=== PATIENT | female | born 1950 | race African-American/Black ===

== ENCOUNTER 2017-09-21 07:25 | Observation (INO) | payer OTHER ==
[~2017-09-21 07:25] MED LIST: HYDROmorphone 2 MG/ML VIAL IV; LIDOCAINE 1% PF 2 ML VIAL. ID; MORPHINE SULFATE 4 MG/ML DISP.SYRIN. IV; ONDANSETRON PF 4 MG/2 ML VIAL. IV; PROCHLORPERAZINE 10 MG/2 ML VIAL. IV; fentaNYL PF VIAL 100 MCG/2 ML VIAL IV
[2017-09-21] MEDS: IV RINGERS,LACTATED 1000ML 1,000 ML IV ×2 (08:27→14:59)
[2017-09-21 08:31] LABS: ADD MAN DIFF? NO
[2017-09-21 08:36] LABS: BASO # 0.1 x10^3/uL (0.0-0.2); BASO % 1 % (0-3); EOS # 0.1 x10^3/uL (0.0-0.7); EOS % 2 % (0-3); HEMATOCRIT 39.6 % (36.0-47.0); HEMOGLOBIN 13.4 g/dL (12.0-15.5); LYMPH # 1.7 x10^3/uL (1.0-4.8); LYMPH % 23 % (24-48); MEAN CORPUSCULAR HEMOGLOBIN 30 pg (25-35); MEAN CORPUSCULAR HGB CONC 34 g/dL (31-37); MEAN CORPUSCULAR VOLUME 87 fL (79-100); MONO # 0.5 x10^3/uL (0.0-1.1); MONO % 7 % (0-9); NEUT # 4.9 x10^3uL (1.8-7.7); NEUT % 67 % (31-73); PLATELET COUNT 349 x10^3/uL (140-400); RED BLOOD COUNT 4.55 x10^6/uL (3.50-5.40); RED CELL DISTRIBUTION WIDTH 13.8 % (11.5-14.5); WHITE BLOOD COUNT 7.3 x10^3/uL (4.0-11.0)
[2017-09-21] MEDS ORDERED: LIDOCAINE 2% PF Vial for OR 5 ML VIAL. (08:40)
[2017-09-21] MEDS ORDERED: PROPOFOL 20 ML IV (08:40)
[2017-09-21] MEDS ORDERED: fentaNYL PF VIAL 100 MCG/2 ML VIAL (08:41)
[2017-09-21] MEDS ORDERED: FAMOTIDINE 20 MG/2 ML VIAL (08:41)
[2017-09-21] MEDS ORDERED: DEXAMETHASONE SOD PHOS 20 MG/5 ML VIAL. (08:41)
[2017-09-21] MEDS ORDERED: ONDANSETRON PF 4 MG/2 ML VIAL. (08:41)
[2017-09-21 08:48] LABS: ANION GAP 8 (6-14); BLOOD UREA NITROGEN 16 mg/dL (7-20); CALCIUM 9.6 mg/dL (8.5-10.1); CARBON DIOXIDE 30 mmol/L (21-32); CHLORIDE 103 mmol/L (98-107); GFR 66.7; GLUCOSE 117 mg/dL (70-99); POTASSIUM 3.4 mmol/L (3.5-5.1); SODIUM 141 mmol/L (136-145)
[2017-09-21] MEDS: SCOPOLAMINE 1.5MG PATCH. TD (09:15)
[2017-09-21] MEDS ORDERED: SUCCINYLCHOLINE 200 MG/10 ML VIAL. (09:40)
[2017-09-21] MEDS ORDERED: LIDOCAINE 1%/EPI 1:100,000 20 ML VIAL. INJ (10:00)
[2017-09-21] MEDS ORDERED: KETOROLAC 30 MG/ML INJ FOR OR. INJ (10:08)
[2017-09-21] MEDS: LIDOCAINE 2%/EPI 1:100,000 20 ML VIAL. IJ (10:14)
[2017-09-21] MEDS ORDERED: DEXTROSE 50% 25 GM / 50ML DISP.SYRIN. IV (10:45)
[2017-09-21] MEDS ORDERED: KETOROLAC 30 MG/ML INJ. IV (10:45)
[2017-09-21] MEDS ORDERED: diphenhydrAMINE 50 MG/ML VIAL IV (10:45)
[2017-09-21] MEDS ORDERED: ZOLPIDEM 5 MG TABLET. PO (10:45)
[2017-09-21] MEDS ORDERED: oxyCODONE/APAP 5/325 1 TAB TABLET PO (10:45)
[2017-09-21] MEDS ORDERED: diphenhydrAMINE HCL 25 MG CAPSULE PO (10:45)
[2017-09-21] MEDS ORDERED: ONDANSETRON PF 4 MG/2 ML VIAL. IV (10:45)
[2017-09-21] MEDS ORDERED: SIMETHICONE 80 MG TAB.CHEW PO (10:45)
[2017-09-21] MEDS ORDERED: CALCIUM CARBONATE 500 MG TAB.CHEW PO (10:45)
[2017-09-21] MEDS ORDERED: 0.9 % SODIUM CHLORIDE 10 ML DISP.SYRIN. IV (10:45)
[2017-09-21] MEDS ORDERED: PROCHLORPERAZINE 10 MG/2 ML VIAL. IV (10:45)
[2017-09-21] MEDS: LABETALOL 20 MG/4 ML DISP.SYRIN. IVP (11:31)
[2017-09-21] MEDS ORDERED: GABAPENTIN 300 MG CAPSULE. PO (14:00)
[2017-09-22] MEDS: IV RINGERS,LACTATED 1000ML 1,000 ML IV (00:32)
[2017-09-22 04:33] LABS: ADD MAN DIFF? NO
[2017-09-22 04:43] LABS: BASO # 0.1 x10^3/uL (0.0-0.2); BASO % 1 % (0-3); EOS % 0 % (0-3); HEMATOCRIT 34.2 % (36.0-47.0); HEMOGLOBIN 11.5 g/dL (12.0-15.5); LYMPH # 1.6 x10^3/uL (1.0-4.8); LYMPH % 14 % (24-48); MEAN CORPUSCULAR HEMOGLOBIN 29 pg (25-35); MEAN CORPUSCULAR HGB CONC 34 g/dL (31-37); MEAN CORPUSCULAR VOLUME 87 fL (79-100); MONO # 0.7 x10^3/uL (0.0-1.1); MONO % 6 % (0-9); NEUT # 9.2 x10^3uL (1.8-7.7); NEUT % 80 % (31-73); PLATELET COUNT 308 x10^3/uL (140-400); RED BLOOD COUNT 3.93 x10^6/uL (3.50-5.40); WHITE BLOOD COUNT 11.5 x10^3/uL (4.0-11.0)
== END 2017-09-22 10:50 | disposition home or self-care (01) ==
LOC: SURG 07:25 → 3 NORTH 10:39
DX: N93.9 Abnormal uterine and vaginal bleeding, unspecified (principal)
CPT/HCPCS: 36415; 80048; 85025; 93005; A7015; G0378; G0379; J0330; J0690; J1100; J1885; J2405; J2704; J3010; J3490; J7120; S0028

== ENCOUNTER → 2017-10-03 | Outpatient (CLI) | payer OTHER | END | disposition home or self-care (01) | LOC: KCIC DEXA 10:35 | DX: C50.812 Malignant neoplasm of overlapping sites of left female breast (principal); M81.0 Age-related osteoporosis without current pathological fracture; I10 Essential (primary) hypertension; Z78.0 Asymptomatic menopausal state | CPT/HCPCS: 77080 ==

== ENCOUNTER → 2018-03-30 | Day surgery (SDC) | payer OTHER ==
[~2018-03-30] MED LIST changes: +ANAS1TAB47 PO; +ASPI-482 PO; +ATOR10TA PO; +DOCU-109 PO; +ERGO500027 PO; +FISH400C4 PO; +HYDR-971 PO; +HYDR12.58 PO; +HYDR25TA9 PO; -HYDROmorphone 2 MG/ML VIAL IV; +Hydrocodone/Acetaminophen PO; +IBUP-1060 PO; +IV RINGERS,LACTATED 1000ML 1,000 ML IV SCH; -LIDOCAINE 1% PF 2 ML VIAL. ID; +LIDOCAINE 1% PF 2 ML VIAL. ID PRN; +LIDOCAINE 1% PF 2 ML VIAL. ONE; +MIDAZOLAM HCL/PF 2 MG/2 ML VIAL. IV PRN; -MORPHINE SULFATE 4 MG/ML DISP.SYRIN. IV; -ONDANSETRON PF 4 MG/2 ML VIAL. IV; +Oxycodone Hcl/Acetaminophen PO; -PROCHLORPERAZINE 10 MG/2 ML VIAL. IV; +PROPOFOL 40 ML IV ONE; -fentaNYL PF VIAL 100 MCG/2 ML VIAL IV; +fentaNYL PF VIAL 100 MCG/2 ML VIAL IV PRN
[2018-03-30 08:48] VITALS: BP 112/72
--- NOTE | 2018-03-30 22:45 | CONS ---
DATE OF CONSULTATION: 03/30/2018 REFERRING PHYSICIAN: Dr. Suresh Guerrero. REASON FOR CONSULTATION: History of colonic polyps. HISTORY OF PRESENT ILLNESS: A 67-year-old female, with past medical history significant for hyperlipidemia as well as osteoarthrosis, history of colonic polyps as well as breast cancer, status post radiation and lumpectomy, is seen for interval colonoscopy. Last exam was 5 years ago at which time polyps were discovered. No bleeding, change in bowel habits, change in weight or appetite is noted. The patient otherwise is without additional complaints. PAST MEDICAL HISTORY: Colonic polyps, osteoarthrosis, hyperlipidemia and history of breast cancer. ALLERGIES: None. MEDICATIONS: Include Arimidex, aspirin, atorvastatin, vitamin D, fish oil, hydrochlorothiazide and ibuprofen. FAMILY HISTORY: Significant for colon cancer with her sister, breast cancer with her mother, diabetes and hypertension. REVIEW OF SYSTEMS: As per records. PHYSICAL EXAMINATION: GENERAL: Reveals a well-nourished, well-developed female, alert, cooperative, in no acute distress. VITAL SIGNS: Temperature is 97, pulse 98, respirations 20. HEENT: Reveals normocephalic and atraumatic head. Pupils and extraocular muscles are not tested. Sclerae anicteric. NECK: Supple. LUNGS: Clear. CARDIOVASCULAR: Reveals an S1, S2 without S3, S4 or appreciable murmur. ABDOMEN: Soft abdomen, normal bowel sounds without appreciable hepatosplenomegaly. EXTREMITIES: Reveals no cyanosis, clubbing or edema. IMPRESSION: History of colonic polyps. Surveillance colonoscopy is recommended at this time. Risks and benefits were previously discussed including risks of hemorrhage and perforation during operation, and she is willing to proceed. I would like to thank Dr. Guerrero for allowing us to consult and participate in the patient's care. SOCORRO CRONIN MD DR: CARLA/mami JOB#: [id number] / [id number]
== END | disposition home or self-care (01) ==
LOC: ENDOS 07:19
PROVIDERS: ATTEND Internal Medicine Gastroenterology
DX: Z12.11 Encounter for screening for malignant neoplasm of colon (principal); K57.30 Diverticulosis of large intestine without perforation or abscess without bleeding; K64.0 First degree hemorrhoids; Z86.010 Personal history of colon polyps; E78.5 Hyperlipidemia, unspecified; Z85.3 Personal history of malignant neoplasm of breast; M19.90 Unspecified osteoarthritis, unspecified site; Z79.82 Long term (current) use of aspirin; Z79.899 Other long term (current) drug therapy; Z82.49 Family history of ischemic heart disease and other diseases of the circulatory system; Z80.0 Family history of malignant neoplasm of digestive organs; Z80.3 Family history of malignant neoplasm of breast
CPT/HCPCS: 45378; J2704

== ENCOUNTER → 2018-12-21 | Outpatient (CLI) | payer OTHER ==
[2018-03-30 08:48] VITALS: BP 112/72
[~2018-12-21] MED LIST changes: +HYDR-2145 PO; +HYDR-3164 PO; -HYDR-971 PO; -HYDR25TA9 PO; -IV RINGERS,LACTATED 1000ML 1,000 ML IV SCH; -LIDOCAINE 1% PF 2 ML VIAL. ID PRN; -LIDOCAINE 1% PF 2 ML VIAL. ONE; -MIDAZOLAM HCL/PF 2 MG/2 ML VIAL. IV PRN; -PROPOFOL 40 ML IV ONE; -fentaNYL PF VIAL 100 MCG/2 ML VIAL IV PRN
--- NOTE | 2018-12-21 09:54 | KCIC ---
Bilateral diagnostic digital mammograms with 3-D tomosynthesis: Reason for examination: History of left breast cancer with lumpectomy. Follow-up exam. Comparison is made to previous studies dated 12/20/2017 and 12/09/2016. Bilateral mammograms in CC and oblique projections were obtained with 2-D imaging and 3-D tomosynthesis imaging on a Siemens Inspiration unit and reviewed on the workstation. Interpretation was made with the benefit of CAD. The skin and nipples show no abnormalities. No abnormal axillary lymph nodes are seen. The breast parenchyma shows scattered fatty and fibroglandular density. (Breast density: Category B.) There are postop changes in the left breast. There continues to be faint nodular density in the upper outer quadrant of the right breast which is stable. There are no new dominant masses, suspicious calcifications or architectural distortion. Impression: Postoperative changes in the left breast. No evidence of new or recurrent malignancy. Recommend routine follow-up. BI-RAD Category 2: Benign. "Our facility is accredited by the [employer] Mammography Program." This patient's information has been entered into a reminder system for the patient to be notified with the results of her examination and a target date for the next mammogram. Electronically signed by: Ana López MD (12/21/2018 9:51 AM) [id number]
== END | disposition home or self-care (01) ==
LOC: KCIC MAMMO 08:52
PROVIDERS: ATTEND Internal Medicine Hematology & Oncology
DX: Z08 Encounter for follow-up examination after completed treatment for malignant neoplasm (principal); Z17.0 Estrogen receptor positive status [ER+]; Z92.3 Personal history of irradiation; Z85.3 Personal history of malignant neoplasm of breast
CPT/HCPCS: 77066; G0279; 77062